=== PATIENT | female | born 1940 | race Caucasian/White ===

== ENCOUNTER 2017-10-05 08:06 | Inpatient (IN) | payer BC, MEDICARE ==
[~2017-10-05] VITALS: Ht 162.6 cm; Wt 51.8 kg
[2017-10-05] MEDS ORDERED: LEVO88TA2 PO (08:24)
[2017-10-05] MEDS ORDERED: LORazepam 2 MG/ML, 1ML ONE (09:43)
[2017-10-05] MEDS ORDERED: LORazepam 2 MG/ML, 1ML IVPush ONE (10:00)
[2017-10-05] MEDS ORDERED: SODIUM CHLORIDE FLUSH 10ML SYR IVF ONE (10:00)
[2017-10-05] MEDS ORDERED: SODIUM CHLORIDE 0.9% 1,000ML IVBOLUS ONE (10:00)
[2017-10-05 10:01] LABS: BASOPHILS # (AUTO) 0.01 x10^3/uL (0-0.1); BASOPHILS % (AUTO) 0 % (0-1); EOSINOPHILS % (AUTO) 0 % (1-7); LYMPHOCYTES # (AUTO) 0.62 x10^3/uL (1-3.4); LYMPHOCYTES % (AUTO) 4 % (22-44); MD NO; MEAN CORPUSCULAR HGB CONC 33.3 g/dL (32.4-35.8); MEAN CORPUSCULAR VOLUME 96.1 fL (80-100); MEAN PLATELET VOLUME 9.1 fL (7.4-10.4); MONOCYTES # (AUTO) 0.78 x10^3/uL (0.2-0.8); MONOCYTES % (AUTO) 5 % (2-9); NEUTROPHILS # (AUTO) 12.98 x10^3/uL (1.8-6.8); NEUTROPHILS % (AUTO) 90 % (42-75); PLATELET COUNT 255 x10^3/uL (130-400); RED BLOOD COUNT 4.63 x10^6/uL (3.82-5.3); RED CELL DISTRIBUTION WIDTH 13.6 % (9.6-15.2)
[2017-10-05 10:05] LABS: INTERNATIONAL NORMALIZED RATIO 0.97 (0.93-1.1)
[2017-10-05 10:10] LABS: ALBUMIN 3.5 g/dL (3.4-5.0); ANION GAP 11 mmol/L (5-15); CALCIUM 8.2 mg/dL (8.5-10.1); CHLORIDE 96 mmol/L (98-107); CREATININE 0.89 mg/dL (0.55-1.02)
[2017-10-05 10:13] LABS: TROPONIN I < 0.015 ng/mL (0.000-0.045)
[2017-10-05] MEDS ORDERED: LABETALOL 5MG/ML, 20ML IVPush PRN (11:00)
[2017-10-05] MEDS ORDERED: DOCUSATE 100 MG CAPSULE PO PRN (11:00)
[2017-10-05] MEDS ORDERED: ONDANSETRON 2MG/ML, 2ML IVPush PRN (11:00)
[2017-10-05] MEDS ORDERED: POLYETHYLENE GLYCOL 17 GM PACKET PO PRN (11:00)
[2017-10-05] MEDS ORDERED: BISACODYL 10 MG SUPP PR PRN (11:00)
[2017-10-05 11:28] LABS: THYROID STIMULATING HORMONE 1.97 mIU/L (0.358-3.740)
[2017-10-05 12:00] VITALS: BP 117/72
[2017-10-05 14:06] VITALS: BP 159/72
[2017-10-05] MEDS: NS + 20MEQ KCL 1,000 ML IV SCH ×2 (18:14→23:00)
[2017-10-05] MEDS: ACETAMINOPHEN 325 MG TABLET PO PRN (18:39)
[2017-10-05] MEDS: ENOXAPARIN 40 MG/0.4 ML SQ SCH (18:39)
[2017-10-05] MEDS: THIAMINE 100MG TABLET PO SCH (18:39)
[2017-10-05 20:00] VITALS: BP 174/87
[2017-10-05] MEDS: LORazepam 2 MG/ML, 1ML IVPush PRN (20:04)
[2017-10-05] MEDS: POTASSIUM CHLORIDE 20 MEQ, MAGNESIUM SULFATE 2 GM, MVI ADULT 10 ML, FOLIC ACID 1 MG in ... IV SCH (22:50)
[2017-10-06] MEDS: LORazepam 2 MG/ML, 1ML IVPush PRN ×8 (00:49→23:31)
[2017-10-06 02:00] VITALS: BP 138/70
[2017-10-06] MEDS: LEVOTHYROXINE 88 MCG TABLET PO SCH (04:54)
[2017-10-06] MEDS: ACETAMINOPHEN 325 MG TABLET PO PRN ×3 (04:54→16:14)
[2017-10-06 05:16] LABS: MICROSCOPIC NOT IND
[2017-10-06 05:18] LABS: BASOPHILS # (AUTO) 0.02 x10^3/uL (0-0.1); BASOPHILS % (AUTO) 0 % (0-1); EOSINOPHILS # (AUTO) 0.08 x10^3/uL (0-0.4); EOSINOPHILS % (AUTO) 1 % (1-7); LYMPHOCYTES % (AUTO) 17 % (22-44); MD NO; MEAN CORPUSCULAR HEMOGLOBIN 32.2 pg (27.0-34.8); MEAN CORPUSCULAR HGB CONC 32.8 g/dL (32.4-35.8); MEAN CORPUSCULAR VOLUME 98.2 fL (80-100); MEAN PLATELET VOLUME 9.3 fL (7.4-10.4); MONOCYTES % (AUTO) 12 % (2-9); NEUTROPHILS # (AUTO) 7.61 x10^3/uL (1.8-6.8); NEUTROPHILS % (AUTO) 70 % (42-75); PLATELET COUNT 213 x10^3/uL (130-400); RED BLOOD COUNT 4.35 x10^6/uL (3.82-5.3); RED CELL DISTRIBUTION WIDTH 14.4 % (9.6-15.2)
[2017-10-06 05:19] LABS: CULTURE INDICATED? NO
[2017-10-06 05:26] LABS: ALBUMIN 2.8 g/dL (3.4-5.0); ANION GAP 5 mmol/L (5-15); CALCIUM 7.7 mg/dL (8.5-10.1); CHLORIDE 103 mmol/L (98-107)
[2017-10-06 05:31] LABS: ALANINE AMINOTRANSFERASE 17 U/L (12-78); ALKALINE PHOSPHATASE 62 U/L (45-117); BILIRUBIN,TOTAL 1.3 mg/dL (0.2-1.0); CREATININE 0.59 mg/dL (0.55-1.02); TOTAL PROTEIN 6.1 g/dL (6.4-8.2)
[2017-10-06 06:55] VITALS: BP_SYST 148; BP_SYST 166; BP_DIAS 75; BP_DIAS 89
[2017-10-06] MEDS: THIAMINE 100MG TABLET PO SCH (10:36)
[2017-10-06] MEDS: ENOXAPARIN 40 MG/0.4 ML SQ SCH (10:36)
[2017-10-06] MEDS ORDERED: NICOTINE 7 MG/24 HR PATCH.TD24 ONE (12:53)
[2017-10-06] MEDS: NICOTINE 7 MG/24 HR PATCH.TD24 TD SCH (13:36)
[2017-10-06] MEDS ORDERED: LORazepam 2 MG/ML, 1ML ONE (13:57)
[2017-10-06] MEDS ORDERED: BACLOFEN 10 MG TABLET ONE (13:58)
[2017-10-06] MEDS: BACLOFEN 10 MG TABLET PO SCH ×3 (14:00→19:40)
[2017-10-06 17:09] VITALS: BP 166/99
[2017-10-06 18:29] VITALS: BP 164/76
[2017-10-07] MEDS: POTASSIUM CHLORIDE 20 MEQ, MAGNESIUM SULFATE 2 GM, MVI ADULT 10 ML, FOLIC ACID 1 MG in ... IV SCH ×2 (00:33→22:30)
[2017-10-07] MEDS: LORazepam 2 MG/ML, 1ML IVPush PRN ×4 (01:30→07:33)
[2017-10-07 04:57] VITALS: BP 114/69
[2017-10-07] MEDS: LEVOTHYROXINE 88 MCG TABLET PO SCH (06:00)
[2017-10-07 06:23] LABS: ANION GAP 9 mmol/L (5-15); CALCIUM 8.6 mg/dL (8.5-10.1); CHLORIDE 94 mmol/L (98-107); CREATININE 0.61 mg/dL (0.55-1.02)
[2017-10-07 06:37] LABS: MEAN CORPUSCULAR HEMOGLOBIN 32.1 pg (27.0-34.8); MEAN CORPUSCULAR HGB CONC 33.6 g/dL (32.4-35.8); MEAN CORPUSCULAR VOLUME 95.6 fL (80-100); MEAN PLATELET VOLUME 9.7 fL (7.4-10.4); PLATELET COUNT 202 x10^3/uL (130-400); RED BLOOD COUNT 4.65 x10^6/uL (3.82-5.3); RED CELL DISTRIBUTION WIDTH 13.8 % (9.6-15.2)
[2017-10-07 06:38] LABS: MD YES
[2017-10-07 06:41] LABS: SEGS% (MANUAL) 63 % (42-75)
[2017-10-07 06:42] LABS: EOS% (MANUAL) 1 % (1-7); LYMPH#(MANUAL) 2.55 x10^3/uL (1-3.4); LYMPHS% (MANUAL) 26 % (22-44); MONOS#(MANUAL) 0.98 x10^3/uL (0.3-2.7); MONOS% (MANUAL) 10 % (2-9); SEG#(MANUAL) 6.17 x10^3/uL (1.8-6.8)
[2017-10-07 06:45] LABS: <PLATELET ESTIMATE> ADEQUATE; <RBC MORPHOLOGY> NORMAL; LARGE PLATELETS 1+
[2017-10-07] MEDS ORDERED: LORazepam 2 MG/ML, 1ML IVPush PRN (09:00)
[2017-10-07] MEDS: BACLOFEN 10 MG TABLET PO SCH ×2 (09:32→21:42)
[2017-10-07] MEDS: SODIUM CHLORIDE 0.9% 1,000 ML IV SCH ×2 (10:10→21:50)
[2017-10-07] MEDS: ENOXAPARIN 40 MG/0.4 ML SQ SCH (12:01)
[2017-10-07] MEDS: THIAMINE 100MG TABLET PO SCH (14:01)
[2017-10-07] MEDS: NICOTINE 7 MG/24 HR PATCH.TD24 TD SCH (14:01)
[2017-10-07 14:02] VITALS: BP 167/71
[2017-10-07 21:30] VITALS: BP 134/75
[2017-10-08 03:25] VITALS: BP 145/80
[2017-10-08 05:11] LABS: ANION GAP 6 mmol/L (5-15); CALCIUM 7.9 mg/dL (8.5-10.1); CHLORIDE 103 mmol/L (98-107)
[2017-10-08 05:12] LABS: CREATININE 0.55 mg/dL (0.55-1.02)
[2017-10-08] MEDS: LEVOTHYROXINE 88 MCG TABLET PO SCH (05:50)
[2017-10-08 06:14] VITALS: BP 167/98
[2017-10-08 06:54] LABS: BASOPHILS # (AUTO) 0.03 x10^3/uL (0-0.1); BASOPHILS % (AUTO) 0 % (0-1); EOSINOPHILS % (AUTO) 1 % (1-7); LYMPHOCYTES # (AUTO) 1.72 x10^3/uL (1-3.4); LYMPHOCYTES % (AUTO) 19 % (22-44); MD NO; MEAN CORPUSCULAR HEMOGLOBIN 32.5 pg (27.0-34.8); MEAN CORPUSCULAR HGB CONC 33.4 g/dL (32.4-35.8); MEAN CORPUSCULAR VOLUME 97.2 fL (80-100); MEAN PLATELET VOLUME 8.9 fL (7.4-10.4); MONOCYTES # (AUTO) 1.28 x10^3/uL (0.2-0.8); MONOCYTES % (AUTO) 14 % (2-9); NEUTROPHILS # (AUTO) 5.92 x10^3/uL (1.8-6.8); NEUTROPHILS % (AUTO) 66 % (42-75); PLATELET COUNT 223 x10^3/uL (130-400); RED BLOOD COUNT 4.67 x10^6/uL (3.82-5.3); RED CELL DISTRIBUTION WIDTH 14.3 % (9.6-15.2)
[2017-10-08] MEDS: ACETAMINOPHEN 325 MG TABLET PO PRN ×2 (08:16→13:10)
[2017-10-08] MEDS: BACLOFEN 10 MG TABLET PO SCH ×2 (08:16→20:23)
[2017-10-08] MEDS: SODIUM CHLORIDE 0.9% 1,000 ML IV SCH (10:49)
[2017-10-08] MEDS: ENOXAPARIN 40 MG/0.4 ML SQ SCH (11:39)
[2017-10-08] MEDS: THIAMINE 100MG TABLET PO SCH (11:39)
[2017-10-08 12:15] VITALS: BP 124/69
[2017-10-08] MEDS: NICOTINE 7 MG/24 HR PATCH.TD24 TD SCH (13:10)
[2017-10-08 20:06] VITALS: BP 145/68
[2017-10-09] MEDS: POTASSIUM CHLORIDE 20 MEQ, MAGNESIUM SULFATE 2 GM, MVI ADULT 10 ML, FOLIC ACID 1 MG in ... IV SCH (00:15)
[2017-10-09 02:00] VITALS: BP 174/91
[2017-10-09 02:38] VITALS: BP 153/74
[2017-10-09] MEDS: ACETAMINOPHEN 325 MG TABLET PO PRN ×3 (03:02→18:39)
[2017-10-09 04:24] LABS: BASOPHILS # (AUTO) 0.03 x10^3/uL (0-0.1); BASOPHILS % (AUTO) 0 % (0-1); EOSINOPHILS # (AUTO) 0.14 x10^3/uL (0-0.4); EOSINOPHILS % (AUTO) 2 % (1-7); LYMPHOCYTES # (AUTO) 1.51 x10^3/uL (1-3.4); LYMPHOCYTES % (AUTO) 19 % (22-44); MD NO; MEAN CORPUSCULAR HEMOGLOBIN 32.1 pg (27.0-34.8); MEAN CORPUSCULAR HGB CONC 32.8 g/dL (32.4-35.8); MEAN CORPUSCULAR VOLUME 97.9 fL (80-100); MEAN PLATELET VOLUME 8.7 fL (7.4-10.4); MONOCYTES % (AUTO) 18 % (2-9); NEUTROPHILS # (AUTO) 4.71 x10^3/uL (1.8-6.8); NEUTROPHILS % (AUTO) 60 % (42-75); PLATELET COUNT 224 x10^3/uL (130-400); RED BLOOD COUNT 4.16 x10^6/uL (3.82-5.3); RED CELL DISTRIBUTION WIDTH 14.2 % (9.6-15.2)
[2017-10-09 04:35] LABS: ALANINE AMINOTRANSFERASE 14 U/L (12-78); ALBUMIN 2.7 g/dL (3.4-5.0); ANION GAP 7 mmol/L (5-15); CALCIUM 8.3 mg/dL (8.5-10.1); CHLORIDE 105 mmol/L (98-107); CREATININE 0.64 mg/dL (0.55-1.02)
[2017-10-09 04:38] LABS: ALKALINE PHOSPHATASE 57 U/L (45-117); BILIRUBIN,TOTAL 0.4 mg/dL (0.2-1.0); TOTAL PROTEIN 6.2 g/dL (6.4-8.2)
[2017-10-09] MEDS: LEVOTHYROXINE 88 MCG TABLET PO SCH (05:43)
[2017-10-09 09:00] VITALS: BP 157/80
[2017-10-09] MEDS: BACLOFEN 10 MG TABLET PO SCH (10:29)
[2017-10-09] MEDS: THIAMINE 100MG TABLET PO SCH (10:29)
[2017-10-09] MEDS: MULTIVITAMIN 1 TABLET PO SCH (10:29)
[2017-10-09] MEDS: FOLIC ACID 1 MG TABLET PO SCH (10:30)
[2017-10-09] MEDS: ENOXAPARIN 40 MG/0.4 ML SQ SCH (10:30)
[2017-10-09] MEDS: NICOTINE 7 MG/24 HR PATCH.TD24 TD SCH (13:09)
[2017-10-09 13:37] VITALS: BP 157/80
[2017-10-09 19:52] VITALS: BP 129/69
[2017-10-10 00:20] VITALS: BP 162/79
[2017-10-10] MEDS: ACETAMINOPHEN 325 MG TABLET PO PRN ×3 (02:35→20:15)
[2017-10-10] MEDS: LEVOTHYROXINE 88 MCG TABLET PO SCH (05:58)
[2017-10-10] MEDS ORDERED: OMNIPAQUE 350 MG/ML, 100ML BOTTLE ONE (06:14)
[2017-10-10 06:40] VITALS: BP 165/80
[2017-10-10] MEDS: BACLOFEN 10 MG TABLET PO SCH (08:26)
[2017-10-10] MEDS: MULTIVITAMIN 1 TABLET PO SCH (08:27)
[2017-10-10] MEDS: ENOXAPARIN 40 MG/0.4 ML SQ SCH (08:27)
[2017-10-10] MEDS: THIAMINE 100MG TABLET PO SCH (08:27)
[2017-10-10] MEDS: NICOTINE 7 MG/24 HR PATCH.TD24 TD SCH (08:27)
[2017-10-10] MEDS: FOLIC ACID 1 MG TABLET PO SCH (08:27)
[2017-10-10 13:15] VITALS: BP 120/60
[2017-10-10 18:45] VITALS: BP 132/65
[2017-10-11 01:19] VITALS: BP 135/74
[2017-10-11] MEDS: LEVOTHYROXINE 88 MCG TABLET PO SCH (05:20)
[2017-10-11 06:45] VITALS: BP 143/79
[2017-10-11] MEDS: NICOTINE 7 MG/24 HR PATCH.TD24 TD SCH (09:00)
[2017-10-11] MEDS: ENOXAPARIN 40 MG/0.4 ML SQ SCH (09:30)
[2017-10-11] MEDS: MULTIVITAMIN 1 TABLET PO SCH (09:30)
[2017-10-11] MEDS: THIAMINE 100MG TABLET PO SCH (09:30)
[2017-10-11] MEDS: FOLIC ACID 1 MG TABLET PO SCH (09:30)
[2017-10-11] MEDS: ACETAMINOPHEN 325 MG TABLET PO PRN (09:31)
[2017-10-11 12:42] VITALS: BP 129/70
== END 2017-10-11 15:05 | disposition home or self-care (01) | DRG 896 ==
LOC: ED 09:43 → EDIP 10:17 → 3NW 11:03 → 3NE 10-09 22:03
PROVIDERS: ADMIT Internal Medicine Pulmonary Disease; ATTEND Internal Medicine Pulmonary Disease
PROC: 0T9B70Z Drainage of Bladder with Drainage Device, Via Natural or Artificial Opening (ICD-10-PCS; principal; 2017-10-06)
DX: F10.239 Alcohol dependence with withdrawal, unspecified (principal); J96.01 Acute respiratory failure with hypoxia; G93.40 Encephalopathy, unspecified; J90 Pleural effusion, not elsewhere classified; E87.1 Hypo-osmolality and hyponatremia; S22.41XA Multiple fractures of ribs, right side, initial encounter for closed fracture; W19.XXXA Unspecified fall, initial encounter; D72.829 Elevated white blood cell count, unspecified; E03.9 Hypothyroidism, unspecified; E05.90 Thyrotoxicosis, unspecified without thyrotoxic crisis or storm; I10 Essential (primary) hypertension; R73.9 Hyperglycemia, unspecified; Y93.89 Activity, other specified; Y92.89 Other specified places as the place of occurrence of the external cause; Y99.8 Other external cause status
CPT/HCPCS: 36415; 71275; 80048; 80053; 81003; 82040; 82607; 83735; 83880; 84100; 84443; 84484; 85025; 85610; 93005; 96361; 96374; J1650; J3475; J3480; J7042; Q9967; J2060; J7030